=== PATIENT | female | born 1975 | race African-American/Black ===

== ENCOUNTER 2021-05-30 17:00 | Emergency (ER) | payer OTHER ==
[~2021-05-30] VITALS: Ht 157.5 cm; Wt 102.1 kg
[2021-05-30] MEDS ORDERED: CEPHALEXIN500 MG PO (17:20)
== END 2021-05-30 17:25 | disposition home or self-care (01) ==
LOC: FSED 17:15
DX: R35.0 Frequency of micturition (principal); N39.0 Urinary tract infection, site not specified; Z20.822 Contact with and (suspected) exposure to COVID-19
CPT/HCPCS: 99283